=== PATIENT | female | born 1960 | race Caucasian/White ===

== ENCOUNTER 2019-10-10 13:24 | Emergency (ER) | payer OTHER ==
[~2019-10-10] VITALS: Ht 147.3 cm; Wt 79.5 kg
[2019-10-10 13:31] VITALS: BP 190/82
--- NOTE | 2019-10-10 15:12 | NUR ---
PATIENT PRESENTS TO ED C/O UPPER AND LOWER BACK PAIN UPON COUGHING. STATES PAIN IS SHARP, 9/10. PT ALSO COMPLAINS OF ABDOMINAL PAIN AND FEELING FEVERISH. NO MEDS TAKEN. DENIES INJURIES. -DYSURIA, -N/V/D. PT IS AMBULATORY WITH STEADY GAIT. VSS; PATIENT POSITIONED FOR COMFORT; HOB ELEVATED; BEDRAILS UP X2; BED DOWN. ER MD MADE AWARE OF PT STATUS. PMH: DM, HTN, HYPERCHOLESTEROLEMIA MEDS: GLIPIZIDE, LISINOPRIL, SIMVASTATIN NKA
[2019-10-10] MEDS ORDERED: IBUPROFEN 600 MG TAB PO ONE (16:50)
[2019-10-10 17:00] VITALS: BP 142/75
--- NOTE | 2019-10-10 17:01 | NUR ---
Patient discharged with v/s stable. Written and verbal after care instructions given and explained. Patient alert, oriented and verbalized understanding of instructions. Ambulatory with steady gait. All questions addressed prior to discharge. ID band removed. Patient advised to follow up with PMD. Rx of MOTRIN, LIDOCAINE PATCH given. Patient educated on indication of medication including possible reaction and side effects. Opportunity to ask questions provided and answered.
== END 2019-10-10 17:00 | disposition home or self-care (01) ==
LOC: MED 13:24
DX: S39.012A Strain of muscle, fascia and tendon of lower back, initial encounter (principal); S29.012A Strain of muscle and tendon of back wall of thorax, initial encounter; J06.9 Acute upper respiratory infection, unspecified; E11.9 Type 2 diabetes mellitus without complications; I10 Essential (primary) hypertension; E78.5 Hyperlipidemia, unspecified; Z87.442 Personal history of urinary calculi; X58.XXXA Exposure to other specified factors, initial encounter; Y93.89 Activity, other specified; Y92.89 Other specified places as the place of occurrence of the external cause; Y99.8 Other external cause status
CPT/HCPCS: 71045; 99283